=== PATIENT | female | born 1950 | race Caucasian/White ===

== ENCOUNTER → 2020-04-09 | Outpatient (CLI) | payer MEDICARE ==
[2020-04-09 16:26] VITALS: BP 143/82; PULSE 75; RESP 20; TEMP 98.7
--- NOTE | 2020-04-09 16:55 | P.GSHP ---
History of Present Illness H&P Date: 04/09/20 Chief Complaint: abnormal ultrasound right breast Breanna is a 70 year old white female seen in consultation for DR. Moncada who noted a lump in her right breast about two weeks ago. She states it has been painful. It has not changed in size. She was sent out anything in the left breast. She has no nipple discharge or skin changes. No history of any recent trauma or infection in the breast. Caffeine: 2 cups/morning Nicotine: Stopped smoking 30 years ago Theophylline: Negative Family history: none Hormonal history: Menarche: 13 G0 menopause: 50 BCP: 20 years hormones: 2 years Surgical history: cyst on ovary removed breast biopsies left breast open, 2 additional needle biopsies each breast kidney removed for donation Medical history: Negative Social history: Nicotine: Negative stopped smoking 30 years ago Alcohol: Negative Drugs: Negative - Constitutional Constitutional: Denies chills, Denies fever - EENT Eyes: denies blurred vision, denies pain Ears: bilateral: decreased hearing (bilateral hearing aids), deny: tinnitus Ears, nose, mouth and throat: Reports headache, Denies sore throat - Breasts Breasts: bilateral: as per HPI - Cardiovascular Cardiovascular: Denies chest pain, Denies shortness of breath - Respiratory Respiratory: Denies cough, Denies 7 - Gastrointestinal Gastrointestinal: Denies abdominal pain, Denies diarrhea, Denies nausea, Denies vomiting - Genitourinary (Female) Genitourinary: Denies dysuria, Denies hematuria - Menstruation Menstruation: Reports postmenopausal - Musculoskeletal Comment: arthritis/ cervical spine - Integumentary Integumentary: Denies pruritus, Denies rash - Neurological Neurological: Denies numbness, Denies weakness - Psychiatric Psychiatric: Denies anxiety, Denies depression - Endocrine Endocrine: Denies fatigue, Denies weight change - Hematologic/Lymphatic Comment: none - Allergic/Immunologic Allergic/Immunologic: Reports as per HPI Past Medical History History of Any Multi-Drug Resistant Organisms: None Reported Smoking Status: Former smoker Medications and Allergies Home Medications Medication Instructions Recorded Confirmed Type No Known Home Medications 04/09/20 04/09/20 History Allergies Allergy/AdvReac Type Severity Reaction Status Date / Time No Known Allergies Allergy Unverified 04/09/20 16:23 Surgical - Exam Vital Signs Temp Pulse Resp BP Pulse Ox 98.7 F 75 20 143/82 97 04/09/20 16:24 08/19/20 16:24 04/09/20 16:24 04/09/20 16:24 04/09/20 16:24 BMI 25.5 - General well developed, well nourished, no distress - Eyes normal ocular movement - ENT no hearing loss, no congestion - Neck no masses, trachea midline - Respiratory normal respiratory effort, clear to auscultation - Cardiovascular Rhythm: regular Heart Sounds: normal: S1, S2 - Abdomen Abdomen: soft, non tender, no guarding, no rigid, no rebound - Integumentary normal turgor - Neurologic no disoriented, no combative - Musculoskeletal normal gait, normal posture - Psychiatric oriented to time, oriented to person, oriented to place, speech is normal, memory intact breast exam: BRA: 36C inspection: ptosis grade 2 bilateral palpation: right breast: Positional exam increase fullness in the upper inner quadrant area approximately 2 cm in size, dense breast, fibrocystic changes; right nipple inversion which is chronic Right axilla: No adenopathy of concern Left breast: Multiple positional exam no dominant masses or nodules of concern Left axilla: No adenopathy of concern Results ultrasound results showing solid lesion of concern Assessment and Plan Assessment: Impression: 1. mass right breast 2. abnormal right breast ultrasound Plan: 1. Bilateral mammogram 2. Ultrasound-guided core biopsy right breast 2. Follow-up in 1 week after biopsy CC: Nella Ramirez encounter 45 minutes, > 50% of time in planning and counselling Time with Patient: Greater than 30
== END | disposition home or self-care (01) ==
LOC: WWCWWP 16:04
PROVIDERS: ATTEND Surgery
DX: Z53.9 Procedure and treatment not carried out, unspecified reason (principal)

== ENCOUNTER → 2020-04-09 | Outpatient (CLI) | payer MEDICARE ==
--- NOTE | 2020-04-10 08:02 | USB ---
Reason for exam: clinical finding. History: Patient is postmenopausal, history of other cancer, and is nulliparous. Benign right mammotome panel of the right breast, May 21, 2013. Excisional biopsy of both breasts. Took hormonal contraceptives for 10 years beginning at age 19. Took estrogen for 4 years beginning at age 50. Took progesterone for 4 years beginning at age 50. Indicated problem(s): lump or thickening and pain in the right breast. Physical Findings: Nurse Summary: Patient complains of right breast lump x 2 weeks with pain. Firm, fixed, irregular, upper inner mass, 3cm irregular, mass right breast at 1 o'clock, 2cm adjacent lump at 2 o'clock (nurse mj). US Breast RT Right complete breast ultrasound includes all four quadrants, the retroareolar region and axilla. Finding demonstrates several hypoechoic lesions measuring 0.9 x 0.9 x 0.8cm lesion at 12 o'clock, 2.0 x 2.2 x 2.1cm at 1 o'clock, 1.2 x 0.6 x 1.3cm at 1 o'clock, 0.8 x 0.6 x 0.6cm at 2 o'clock and 1.0 x 1.1 x 0.9cm at 2 o'clock. These results were verbally communicated with the patient and result sheet given to the patient on 04/09/20. ASSESSMENT: Highly suggestive of malignancy, BI-RAD 5 RECOMMENDATION: Ultrasound core biopsy of the right breast. (x 5) Bilateral mammography recommended and the patient refused at this time. Called Dr. Moncada's office with mammographic findings and has scheduled an appointment for the patient for 04/09/[address] Sow. Biopsy scheduled for 04/14/20 at 8:00. PRELIMINARY REPORT CALLED AND FAXED TO DR. SOW ON 04/10/20.
== END | disposition home or self-care (01) ==
LOC: RADUSWWP 14:42
PROVIDERS: ATTEND Internal Medicine
DX: N63.10 Unspecified lump in the right breast, unspecified quadrant (principal); N64.4 Mastodynia; R92.8 Other abnormal and inconclusive findings on diagnostic imaging of breast

== ENCOUNTER → 2020-04-14 | Day surgery (SDC) | payer MEDICARE ==
--- NOTE | 2020-04-14 07:53 | MM ---
Reason for exam: additional evaluation requested from prior study. Last mammogram was performed 4 years ago. History: Patient is postmenopausal, history of other cancer, and is nulliparous. Benign right mammotome panel of the right breast, May 21, 2013. Excisional biopsy of both breasts. Took hormonal contraceptives for 10 years beginning at age 19. Took estrogen for 4 years beginning at age 50. Took progesterone for 4 years beginning at age 50. Physical Findings: Nurse Summary: nodule in the right breast at 11 o'clock (nurse ms). MG Diagnostic Mammo w CAD CARISSA Bilateral CC and MLO view(s) were taken. Prior study comparison: April 27, 2016, bilateral MG 3d diag mammo w/cad CARISSA. January 02, 2015, bilateral MG diagnostic mammo w CAD CARISSA. The breast tissue is heterogeneously dense. This may lower the sensitivity of mammography. Partially obscured mass posterior 1 o'clock with BB. Other underlying suspicious densities upper inner quadrant right breast. No significant change on the left breast. These results were verbally communicated with the patient and result sheet given to the patient on 04/14/20. ASSESSMENT: Highly suggestive of malignancy, BI-RAD 5 RECOMMENDATION: Ultrasound core biopsy of the right breast. (multiple sites) Biopsy scheduled 04/14/20 at 8:00.
[2020-04-14 13:45] VITALS: RESP 16; TEMP 98.1
[2020-04-14 13:53] VITALS: BP 146/71; PULSE 62
--- NOTE | 2020-04-14 15:13 | USB ---
EXAMINATION TYPE: US biopsy breast VAD RT (4 sites), MG post biopsy diagnostic mammo RT wo CAD DATE OF EXAM: 04/14/2020 CLINICAL HISTORY: 70-year-old female palpable abnormality 992.8 Abnormal Mammogram. TECHNIQUE: Ultrasound guided core biopsy of the right breast. COMPARISON: 04/09/2020 FINDINGS: The procedure of ultrasound guided core biopsy was explained to the patient. Benefits, alternatives, and risks were discussed. An informed consent was then obtained. The patient was placed in supine positioning for imaging and for the procedure. The overlying skin was prepped and draped in usual sterile fashion. Lidocaine was used as anesthetic into the skin and subcutaneous tissue up to each area of concern in the right breast in turn. Lidocaine with epinephrine was utilized as an anesthetic in the subcutaneous tissues and around the axillary target lesion. SITE 1: Dominant palpable 1:00: Under ultrasound guidance, a 13-gauge vacuum- assisted mammotome Elite biopsy gun device was used to obtain 4 core samples. Following this, a Hydromark clip was left in lesion. SITE 2: Far Medial 2:00: Under ultrasound guidance, a 13-gauge vacuum-assisted mammotome Elite biopsy gun device was used to obtain 3 core samples. Following this, a coil clip was left in lesion. SITE 3: Far Lateral 12:00: Under ultrasound guidance, a 13-gauge vacuum-assisted mammotome Elite biopsy gun device was used to obtain 4 core samples. Following this, a ribbon clip was left in lesion. SITE 4: Thickened Axillary node: Under ultrasound guidance, a 13-gauge vacuum- assisted mammotome Elite biopsy gun device was used to obtain 8 core samples. Following this, a Hydromark clip was left in lesion. The patient tolerated the procedure well without any immediate complication. The patient was kept in the radiology department for short stay after the procedure and then discharged home in stable condition. Postbiopsy mammogram shows clips in place. The 2 farthest clips measure up to 6 cm away. IMPRESSION: Successful, uncomplicated ultrasound guided core biopsy of suspected multifocal upper inner quadrant right breast cancer. The dominant palpable 1:00 lesion as well as the far lateral 12:00 lesion and far medial 2 o'clock lesions were sampled. The 2 farthest clips measure up to 6 cm away. The thickened but nonenlarged axillary lymph node (site 4) was also sampled. Full pathology results to follow. Pathology Results: Malignant A. RIGHT BREAST LESION AT 1:00 POSITION, NEEDLE CORE BIOPSY: Adenocarcinoma, David grade 3. The fragments of tumor aggregate to a length of 9 mm or about 50% of biopsy volume not including blood clot. See Surgical Pathology Cancer Case Summary. B. RIGHT BREAST LESION AT 2:00 POSITION, BIOPSIES: David grade 3 infiltrating ductal adenocarcinoma. The aggregate linear dimension of the tumor fragments is about 1.5 cm (about 50% tissue involvement). C. RIGHT BREAST LESION AT 12:00 POSITION, NEEDLE CORE BIOPSY: David grade 3 infiltrating ductal adenocarcinoma measuring in aggregate about 3 cm in linear dimension (about 70% tissue involvement). Focal lymph vascular space permeation is identified. D. RIGHT AXILLARY: High grade ductal carcinoma involving fibroadipose tissue with scant amounts of lymphoid tissue suggestive of residual lymph node Recommendation Surgical consult of the right breast. Multifocal upper inner quadrant right breast involvement along with a positive lymph node. MTDD
== END ==
LOC: RADUSWWP 07:09
PROVIDERS: ATTEND Surgery
DX: C50.911 Malignant neoplasm of unspecified site of right female breast (principal); C50.611 Malignant neoplasm of axillary tail of right female breast; Z17.0 Estrogen receptor positive status [ER+]
CPT/HCPCS: 19083; 19084; 88305; 88342; 88341; 77066; A4648; J2001; 77065

== ENCOUNTER → 2020-04-14 | Outpatient (CLI) | payer MEDICARE ==
[2020-04-14 07:56] VITALS: BP 142/80; PULSE 61; RESP 16; TEMP 98.2
== END | disposition home or self-care (01) ==
LOC: RADMAMWWP 07:08
PROVIDERS: ATTEND Surgery
DX: N63.0 Unspecified lump in unspecified breast (principal); Z53.9 Procedure and treatment not carried out, unspecified reason

== ENCOUNTER → 2020-04-25 | Outpatient (CLI) | payer MEDICARE ==
[2020-04-25 11:53] VITALS: BP 155/85; PULSE 66; RESP 18; TEMP 99
--- NOTE | 2020-04-25 13:03 | P.PN ---
Subjective Progress Note Date: 04/25/20 Principal diagnosis: right breast cancer [id number] Stage IIIA Breanna is a 70-year-old white female status post ultrasound-guided core biopsy of 3 areas in the right breast as well as the axilla. All were consistent with infiltrating ductal carcinoma. The 3 areas in the breast appeared to be 3 separate areas. Additionally on ultrasound there was question whether there may be other areas which were not biopsied. We will review the radiographs with Dr. Kemp from radiology there was concern that the breasts were very dense and that she would benefit from an MRI of both breasts. The results of the pathology are discussed with the patient and her as well as the need for additional imaging. I've also discussed with them that the lesions are healed positive MS HER-2 negative grade 3. She tolerated the biopsies well. She does have some ecchymosis at the biopsy sites. Physical exam: Lungs: Clear Heart: Regular rate and rhythm Biopsy sites positive ecchymosis in the breast no evidence of hematoma Healed well at the axilla Impression: 1. Multifocal invasive ductal carcinoma right breast 2. Further imaging of both breast left breast ultrasound and bilateral breast MRI 3. Appointment with medical oncology The patient and her are going to [place] for 6 months. They're leaving within the next several weeks. She only has an appointment with the breast oncologist Dr. Lisa Hein. The information to her. Objective - Vital Signs Vital signs: Vital Signs Temp 99.0 F 04/25/20 11:50 Pulse 66 04/25/20 11:50 Resp 18 04/25/20 11:50 BP 155/85 04/25/20 11:50 Pulse Ox 97 04/25/20 11:50 Intake & Output 04/24/20 04/25/20 04/25/20 18:59 06:59 18:59 Weight 63.503 kg - Constitutional General appearance: Present: average body habitus - EENT Eyes: Present: EOMI ENT: Present: hearing grossly normal - Respiratory Respiratory: bilateral: CTA - Cardiovascular Rhythm: regular Heart sounds: normal: S1, S2 - Integumentary Integumentary Comment(s): Mild ecchymosis of biopsy sites evidence of hematoma or infection - Musculoskeletal Musculoskeletal: Present: gait normal - Psychiatric Psychiatric: Present: A&O x's 3, appropriate affect, intact judgment & insight Assessment and Plan Assessment: Impression/Plan 1. Multifocal invasive ductal carcinoma right breast; Stage IIIA 2. Further imaging of both breast left breast ultrasound and bilateral breast MRI 3. Appointment with medical oncology The patient and her are going to [place] for 6 months. They're leaving within the next several weeks. She only has an appointment with the breast oncologist Dr. Lisa Hein. The information to her. Encounter 40 minutes > 50% of time in planning and counselling
== END | disposition home or self-care (01) ==
LOC: WWCWWP 11:12
PROVIDERS: ATTEND Surgery
DX: Z53.9 Procedure and treatment not carried out, unspecified reason (principal)

== ENCOUNTER → 2021-01-23 | Outpatient (CLI) | payer MEDICARE ==
[2021-01-23 13:16] VITALS: BP 144/92; PULSE 76; RESP 16; TEMP 98.2
--- NOTE | 2021-01-23 14:00 | P.PN ---
Subjective Progress Note Date: 01/23/21 Principal diagnosis: right breast stage Breanna is a 70 year old white female seen in consultation for DR. Moncada who noted a lump in her right breast about two weeks ago. She states it has been painful. It has not changed in size. She was sent out anything in the left ar ast. She has no nipple discharge or skin changes. No history of any recent trauma or infection in the breast. She subsequently had core biopsy of 3 areas of the right breast 1:00 2:00 and 12:00 as well as the axillary nodes which revealed cancer at each site. This was done on . She subsequently went to [place] where she received treatment. The treatment consisted of 5 months of neoadjuvant chemotherapy (Adriamycin, Cytoxan, Taxol) October 27, 2020 Breast mastectomy with axillary lymph node dissection Subpectoral implant placed Radiation therapy which she finished last Tuesday Pathology as per one of the doctors reports reveals: Right breast: Residual infiltrating ductal carcinoma 1.4 cm grade 2 margins negative Lymph node right axilla sentinel node #1 clipped metastatic adenocarcinoma with extracapsular extension Lymph node right axilla sentinel node #2 metastatic adenocarcinoma with extracapsular extension Lymph node right axilla excision sinus histiocytosis no metastatic tumor seen in for additional nodes skin of right breast excision no significant pathologic changes no evidence of cancer MRI of the breast no evidence of the left breast represent malignancy right breast mass like enhancement consistent with known malignancies Chest x-ray from no acute abnormality application following placement of left subclavian Port-A-Cath CT abdomen and pelvis date as well as CT of the thorax impression Hyperdense sclerotic focus within the issue him on the left has appears most compatible with a bone island give a history of breast cancer sclerotic metastases could not be fully excluded and correlation with bone scan recommended In the CT of the thorax there were noted to be lesions in the right breast no evidence of pulmonary metastatic disease or bony metastases some mildly prominent lymph nodes in the right axilla 05/21/2020 bone scan performed no suspicious uptake and the exam no convincing evidence of uptake at the issue him on the left She was instructed to start Letrazole the first of the week. She was also told she would need a bone density evaluation. Caffeine: 2 cups/morning Nicotine: Stopped smoking 30 years ago Theophylline: Negative Family history: none Hormonal history: Menarche: 13 G0 menopause: 50 BCP: 20 years hormones: 2 years Surgical history: cyst on ovary removed breast biopsies left breast open, 2 additional needle biopsies each breast kidney removed for donation Medical history: Negative Social history: Nicotine: Negative stopped smoking 30 years ago Alcohol: Negative Drugs: Negative - Constitutional Constitutional: Denies chills, Denies fever - EENT Eyes: denies blurred vision, denies pain Ears: bilateral: decreased hearing (bilateral hearing aids), deny: tinnitus Ears, nose, mouth and throat: Reports headache, Denies sore throat - Breasts Breasts: bilateral: as per HPI - Cardiovascular Cardiovascular: Denies chest pain, Denies shortness of breath - Respiratory Respiratory: Denies cough - Gastrointestinal Gastrointestinal: Denies abdominal pain, Denies diarrhea, Denies nausea, Denies vomiting - Genitourinary (Female) Genitourinary: Denies dysuria, Denies hematuria - Menstruation Menstruation: Reports postmenopausal - Musculoskeletal Comment: arthritis/ cervical spine - Integumentary Integumentary: Denies pruritus, Denies rash - Neurological Neurological: Denies numbness, Denies weakness - Psychiatric Psychiatric: Denies anxiety, Denies depression - Endocrine Endocrine: Denies fatigue, Denies weight change - Hematologic/Lymphatic Comment: none - Allergic/Immunologic Allergic/Immunologic: Reports as per HPI Objective - Vital Signs Vital signs: Vital Signs Temp 98.2 F 01/23/21 13:06 Pulse 76 01/23/21 13:06 Resp 16 01/23/21 13:06 BP 144/92 01/23/21 13:06 Pulse Ox 98 01/23/21 13:06 Intake & Output 01/22/21 01/23/21 01/23/21 18:59 06:59 18:59 Weight 62.596 kg - Constitutional General appearance: Present: average body habitus - EENT Eyes: Present: EOMI ENT: Present: hearing grossly normal - Neck Neck: Present: normal ROM - Respiratory Respiratory: bilateral: CTA - Cardiovascular Rhythm: regular Heart sounds: normal: S1, S2 - Integumentary Integumentary Comment(s): Marked erythema right chest wall - Musculoskeletal Musculoskeletal: Present: gait normal - Psychiatric Psychiatric: Present: A&O x's 3, appropriate affect, intact judgment & insight - Additional findings Additional findings: Breast examination: BRA: 36C inspection: Marked erythema right chest wall related to recent radiation therapy, left breast well-healed scars from prior breast left Palpation: Right breast: Radiation and surgical changes no discrete no masses noted Right axilla: No adenopathy of concern Left breast: Postop changes no dominant masses or nodules of concern, fibrocystic changes Left axilla: No adenopathy of concern Assessment and Plan Assessment: Impression: 1. stage IIA [id number]- at the time of surgery invasive ductal carcinoma of the right breast 2. Patient is completed neoadjuvant chemotherapy, she has completed radiation therapy, and surgical resection. 3. Patient is to start on letrazole in the near future Plan: 1. Patient establishing follow-up related to her recent right breast cancer at this time she has no evidence of any disease 2. Recommend appointment with medical oncology regarding hormonal therapy 3. Follow-up here in 4 months 4. bone density needs to be done and then follow with medical oncology CC: Dr. Mtz
== END ==
LOC: WWCWWP 12:45
PROVIDERS: ATTEND Surgery
DX: C50.911 Malignant neoplasm of unspecified site of right female breast (principal); Z87.891 Personal history of nicotine dependence

== ENCOUNTER → 2021-02-06 | Outpatient (CLI) | payer MEDICARE ==
--- NOTE | 2021-02-09 07:48 | BD ---
EXAMINATION TYPE: Axial Bone Density DATE OF EXAM: 02/06/2021 COMPARISON: 05.11.2013 CLINICAL HISTORY: 70 YR OLD FEMALE.....ICD-10 CODE: Z78.0 POST MENOPAUSAL Height: 62.5 Weight: 135 FRAX RISK QUESTIONS: NOTHING TO NOTE HERE RISK FACTORS HISTORY OF: Postmenopausal woman: YES, AT AGE 49 YRS Take estrogen and/or progesterone medications: YES, IN THE PAST < 1 YR Hyperparathyroidism: NO Adrenal Insufficiency: NO MEDICATIONS: Prednisone or other steroids: YES, DURING CHEMO Additional Medications: HX OF RADIATION AND CHEMO, FOR BREAST CANCER, VIT D AND CALCIUM Additional History: HX OF RT BREAST CANCER, EXAM MEASUREMENTS: Bone mineral densitometry was performed using the [employer] System. Bone mineral density as measured about the Lumbar spine is: ----- L1-L4(G/cm2): 1.228 T Score Values are as follows: ----- L1: -0.5 ----- L2: -1.2 ----- L3: 0.5 ----- L4: 1.7 ----- L1-L4: 0.4 Bone mineral density has: Decreased -3.0% since study of: 05.11.2013 Bone mineral density about the R hip (g/cm2): 0.893 Bone mineral density about the L hip (g/cm2): 0.844 T Score values are as follows: -----R Neck: -1.4 -----L Neck: -1.6 -----R Total: -0.9 -----L Total: -1.3 Bone mineral density has: Decreased -5.3% since study of: 05.11.2013 FRAX%s: THERE IS A 10.7% CHANCE FOR A MAJOR OSTEOPOROTIC FX AND A 1.9% FOR HIP......PROBABILITY F OR FX IN 10 YRS TIME IMPRESSION: Osteopenia NOTE: T-SCORE=SD OF THE YOUNG ADULT MEAN.
== END ==
LOC: RADBDWWP 13:06
PROVIDERS: ATTEND Surgery
DX: Z78.0 Asymptomatic menopausal state (principal)
CPT/HCPCS: 77080

== ENCOUNTER → 2021-05-22 | Outpatient (CLI) | payer MEDICARE ==
[2021-05-22 11:46] VITALS: BP 117/71; PULSE 81; RESP 12; TEMP 98.6
--- NOTE | 2021-05-22 12:01 | P.PN ---
Subjective Progress Note Date: 05/22/21 Principal diagnosis: stage IIA right breast invasive ductal cancer; [id number]- Breanna is a 70 year old white female seen in consultation for DR. Moncada who noted a lump in her right breast about two weeks prior to being seen. She states it had been painful. It had not changed in size. She did not note anything in the left breast. She had no nipple discharge or skin changes. No history of any recent trauma or infection in the breast. She subsequently had core biopsy of 3 areas of the right breast 1:00 2:00 and 12:00 as well as the axillary nodes which revealed cancer at each site. This was done on . She subsequently went to [place] where she received treatment. The treatment consisted of 5 months of neoadjuvant chemotherapy (Adriamycin, Cytoxan, Taxol) October 27, 2020 Breast mastectomy with axillary lymph node dissection Subpectoral implant placed Radiation therapy which she finished last Tuesday Pathology as per one of the doctors reports reveals: Right breast: Residual infiltrating ductal carcinoma 1.4 cm grade 2 margins negative Lymph node right axilla sentinel node #1 clipped metastatic adenocarcinoma with extracapsular extension Lymph node right axilla sentinel node #2 metastatic adenocarcinoma with extracapsular extension Lymph node right axilla excision sinus histiocytosis no metastatic tumor seen in for additional nodes skin of right breast excision no significant pathologic changes no evidence of cancer MRI of the breast no evidence of the left breast represent malignancy right breast mass like enhancement consistent with known malignancies Chest x-ray from no acute abnormality application following placement of left subclavian Port-A-Cath CT abdomen and pelvis date as well as CT of the thorax impression Hyperdense sclerotic focus within the ishum on the left has appears most compatible with a bone island give a history of breast cancer sclerotic metastases could not be fully excluded and correlation with bone scan recommended In the CT of the thorax there were noted to be lesions in the right breast no evidence of pulmonary metastatic disease or bony metastases some mildly prominent lymph nodes in the right axilla 05/21/2020 bone scan performed no suspicious uptake and the exam no convincing evidence of uptake at the issue him on the left She was instructed to start Letrazole the first of the week. She was also told she would need a bone density evaluation. 10-1-[address] Blair from [id number] reviewed. All her treatment was in [place]. She has taken letrazole and Dr. Blair is following her for that. She states she is having some pain in her ankles and knees related to this. She states that her right chest wall was painful and feels like a bowling ball. She does not complain of any new lumps masses or nodules however on the chest wall. She does not complain of any lumps masses or nodules in the left breast and is due for a left breast mammogram. She also underwent a left breast symmetry procedure following the right breast nipple sparing mastectomy. Caffeine: 2 cups/morning Nicotine: Stopped smoking 30 years ago Theophylline: Negative Family history: patient: right breast cancer Hormonal history: Menarche: 13 G0 menopause: 50 BCP: 20 years hormones: 2 years Surgical history: cyst on ovary removed breast biopsies left breast open, 2 additional needle biopsies each breast kidney removed for donation right breast mastectomy and reconstruction, right axillary node 6 nodes removed Medical history: Negative Social history: Nicotine: Negative stopped smoking 30 years ago Alcohol: Negative Drugs: Negative - Constitutional Constitutional: Denies chills, Denies fever - EENT Eyes: denies blurred vision, denies pain Ears: bilateral: decreased hearing (bilateral hearing aids), deny: tinnitus Ears, nose, mouth and throat: Reports headache, Denies sore throat - Breasts Breasts: bilateral: as per HPI - Cardiovascular Cardiovascular: Denies chest pain, Denies shortness of breath - Respiratory Respiratory: Denies cough - Gastrointestinal Gastrointestinal: Denies abdominal pain, Denies diarrhea, Denies nausea, Denies vomiting - Genitourinary (Female) Genitourinary: Denies dysuria, Denies hematuria - Menstruation Menstruation: Reports postmenopausal - Musculoskeletal Comment: arthritis/ cervical spine - Integumentary Integumentary: Denies pruritus, Denies rash - Neurological Neurological: Denies numbness, Denies weakness - Psychiatric Psychiatric: Denies anxiety, Denies depression - Endocrine Endocrine: Denies fatigue, Denies weight change - Hematologic/Lymphatic Comment: none - Allergic/Immunologic Allergic/Immunologic: Reports as per HPI Objective - Exam BMI 24 - Constitutional General appearance: Present: cooperative - EENT Eyes: Present: EOMI ENT: Present: hearing grossly normal - Neck Neck: Present: normal ROM - Respiratory Respiratory: bilateral: CTA - Cardiovascular Rhythm: regular Heart sounds: normal: S1, S2 - Gastrointestinal General gastrointestinal: Present: soft - Integumentary Integumentary: Present: normal turgor - Musculoskeletal Musculoskeletal: Present: gait normal - Psychiatric Psychiatric: Present: A&O x's 3, appropriate affect, intact judgment & insight - Additional findings Additional findings: Breast Exam: BRA: 34C inspection: Bilateral well-healed scars from prior surgery, grade 2 ptosis bilateral, contraction and mild erythema right breast believed related to radiation Palpation: Right breast: Postop and radiation changes, firmness of the area of the reconstruction but no evidence of recurrent cancer Right axilla: No adenopathy of concern Left breast: Well-healed scars from prior surgery no dominant masses or nodules of concern Left axilla: No adenopathy of concern Assessment and Plan Assessment: Impression: 1. stage IIA right breast invasive ductal carcinoma, treated with a right nipple sparing mastectomy and reconstruction, axillary node removal, radiation, chemotherapy, and left resolved. The patient at this time has no evidence of recurrent cancer however she is complaining of discomfort in the right chest wall as well as heaviness of the implant. Additionally she has joint pain related to the left resolved. She has no complaints related to the left breast. 2. Patient's last left breast mammogram was approximately a year ago. Plan: 1. Left breast mammogram 2. Follow-up after left breast mammogram 3. Patient would like to consider removal of the implant on the right chest wall and will discuss possible reconstruction options with her plastic surgeon 4. follow up with Dr. Blair regarding letrazole 5. follow up in 4 months in [place] CC: Dr. Mtz
== END | disposition home or self-care (01) ==
LOC: WWCWWP 11:32
PROVIDERS: ATTEND Surgery
DX: Z53.9 Procedure and treatment not carried out, unspecified reason (principal)

== ENCOUNTER → 2021-05-25 | Outpatient (CLI) | payer MEDICARE ==
--- NOTE | 2021-05-25 13:50 | MM ---
Reason for exam: screening (asymptomatic). Last mammogram was performed 1 year and 1 month ago. History: Patient is postmenopausal, has history of breast cancer at age 70, history of other cancer, and is nulliparous. Breast lift of the left breast, October 2020. Malignant US biopsy breast VAD RT of the right breast, April 14, 2020. Malignant US biopsy breast add'l VAD RT of the right breast, April 14, 2020. Malignant US biopsy breast add'l VAD RT of the right breast, April 14, 2020. Malignant US biopsy breast add'l VAD RT of the right breast, April 14, 2020. Benign right mammotome panel of the right breast, May 21, 2013. Excisional biopsy of both breasts. Took hormonal contraceptives for 10 years beginning at age 19. Took estrogen for 4 years beginning at age 50. Took progesterone for 4 years beginning at age 50. Physical Findings: A clinical breast exam by your physician is recommended on an annual basis and results should be correlated with mammographic findings. MG 3D Scr Angelo Unilateral W/Cad CC and MLO view(s) were taken of the left breast. Prior study comparison: April 14, 2020, right breast MG diagnostic mammo RT wo CAD. April 14, 2020, bilateral MG diagnostic mammo w CAD CARISSA. The breast tissue is extremely dense which could obscure a lesion on mammography. There is no discrete abnormality. Suboptimal CC view posterior tissue. Due to patient difficulty. ASSESSMENT: Negative, BI-RAD 1 RECOMMENDATION: Follow-up diagnostic mammogram of the left breast in 1 year.
== END | disposition home or self-care (01) ==
LOC: RADMAMWWP 07:43
PROVIDERS: ATTEND Surgery
DX: Z12.31 Encounter for screening mammogram for malignant neoplasm of breast (principal)
CPT/HCPCS: 77067

== ENCOUNTER → 2022-05-26 | Outpatient (CLI) | payer MEDICARE ==
--- NOTE | 2022-05-26 14:46 | MM ---
Reason for Exam: Hx of breast cancer, mastectomy. Last mammogram was performed 2 year(s) and 2 month(s) ago. Patient History: Menarche at age 13. Patient has no children. Postmenopausal. Other cancer. Breast cancer, age 70. Estrogen for 4 years from age 50 until age 54. Progesterone for 4 years from age 50 until age 54. Hormonal Contraceptives for 10 years from age 19 until age 29. Bilateral Excisional Biopsy. 04/14/2020, Malignant Core Biopsy on the right side. 04/14/2020, Malignant Core Biopsy on the right side. 04/14/2020, Malignant Core Biopsy on the right side. 04/14/2020, Malignant Core Biopsy on the right side. 05/21/2013, Benign Core Biopsy on the right side. Prior Study Comparison: 04/14/2020 Bilateral Diagnostic Mammogram, [facility]. 04/14/2020 Right Diagnostic Mammogram, [facility]. 05/25/2021 Bilateral Screening Mammogram, [facility]. Tissue Density: Left: The breast tissue is heterogeneously dense. This may lower the sensitivity of mammography. Findings: Analyzed By CAD. No suspicious masses, calcifications or distortions. Overall Assessment: Benign, BI-RAD 2 Management: Screening Mammogram of the left breast in 1 year. A clinical breast exam by your physician is recommended on an annual basis and results should be correlated with mammographic findings. This exam should not preclude additional follow-up of suspicious palpable abnormalities. Results were given to the patient verbally at the time of exam. Electronically signed and approved by: Linden Davis DO
== END | disposition home or self-care (01) ==
LOC: RADMAMWWP 14:12
PROVIDERS: ATTEND Internal Medicine Hematology & Oncology
DX: Z08 Encounter for follow-up examination after completed treatment for malignant neoplasm (principal); Z85.3 Personal history of malignant neoplasm of breast
CPT/HCPCS: 77065; G0279; 77061

== ENCOUNTER → 2023-02-09 | Outpatient (CLI) | payer MEDICARE ==
--- NOTE | 2023-02-10 19:58 | BD ---
EXAMINATION TYPE: Axial Bone Density DATE OF EXAM: 02/09/2023 CLINICAL HISTORY: 72 years old Female. ICD-10 CODE: M85.80 OTH DISRD OF BONE DENSITY AND STRUCTURE, UN Height: 62.5 Weight: 140 FRAX RISK QUESTIONS: Family History (Parent hip fracture): no History of Fracture in Adulthood: no Secondary Osteoporosis: no 3. Menopause before 45: 50 RISK FACTORS HISTORY OF: Family History of Osteoporosis: no Active: yes Diet low in dairy products/other sources of calcium: no Postmenopausal woman: yes Lost more than 2 inches in height since high school: no Frequent falls: no Poor Health: no MEDICATIONS: Additional Medications: yes HBP meds, cholesterol meds, tamoxifen Additional History: yes breast cancer with radiation and chemo EXAM MEASUREMENTS: Bone mineral densitometry was performed using the Freebeep[employer] System. Bone mineral density as measured about the Lumbar spine is: ----- L1-L4(G/cm2): 1.219 T Score Values are as follows: ----- L1: 0.3 ----- L2: 0.4 ----- L3: 0.2 ----- L4: 0.3 ----- L1-L4: 0.3 Z Score Values are as follows: ----- L1: 2.0 ----- L2: 2.2 ----- L3: 2.0 ----- L4: 2.1 ----- L1-L4: 2.1 Bone mineral density has: Decreased -0.7% since study of: 02/06/2021 Bone mineral density about the R hip (g/cm2): 0.883 Bone mineral density about the L hip (g/cm2): 0.861 T Score values are as follows: -----R Neck: -1.6 -----L Neck: -1.8 -----R Total: -1.0 -----L Total: -1.2 Z Score values are as follows: -----R Neck: 0.3 -----L Neck: 0.1 -----R Total: 0.7 -----L Total: 0.5 Bone mineral density has: Increased 0.5% since study of: 02/06/2021 FRAX%s: The graph provided illustrates a 12.1% chance for a major osteoporotic fx and a 2.6% chance f or the hips probability for fx in 10 years time. IMPRESSION: Osteopenia (T Score between -2.5 and -1). There is slightly increased risk of fracture and the patient may be considered for treatment. Re-Screen 2-5 years. NOTE: T-SCORE=SD OF THE YOUNG ADULT MEAN.
== END | disposition home or self-care (01) ==
LOC: RADBDWWP 14:51
PROVIDERS: ATTEND Internal Medicine
DX: M85.89 Other specified disorders of bone density and structure, multiple sites (principal)
CPT/HCPCS: 77080

== ENCOUNTER → 2024-01-04 | Outpatient (CLI) | payer MEDICARE ==
--- NOTE | 2024-01-05 18:35 | MM ---
Reason for Exam: Screening (asymptomatic). Last mammogram was performed 1 year(s) and 7 month(s) ago. Patient History: Menarche at age 13. Patient has no children. Postmenopausal. Breast cancer, right, age 70. Previous chest radiation therapy at age 69. Previous chemotherapy at age 69. Estrogen for 4 months starting at age 50. Progesterone for 4 months starting at age 50. Hormonal Contraceptives for 10 years from age 19 until age 29. 11/2020, Mastectomy on the Right side. Bilateral Excisional Biopsy. 04/14/2020, Malignant Core Biopsy on the right side. 04/14/2020, Malignant Core Biopsy on the right side. 04/14/2020, Malignant Core Biopsy on the right side. 04/14/2020, Malignant Core Biopsy on the right side. 05/21/2013, Benign Core Biopsy on the right side. Prior Study Comparison: 04/14/2020 Right Diagnostic Mammogram, [facility]. 05/25/2021 Bilateral Screening Mammogram, [facility]. 05/26/2022 Left MG 3D diag mammo w/cad LT, [facility]. Tissue Density: Left: The breasts are heterogeneously dense, which may obscure small masses. Findings: No significant change from prior exams. Overall Assessment: Benign, BI-RAD 2 Management: Screening Mammogram of the left breast in 1 year. Given the patient's breast density, consideration can be given to supplementary screening with breast ultrasound.. Results were given to the patient verbally at the time of exam. Patient should continue monthly self-breast exams. A clinical breast exam by your physician is recommended on an annual basis. This exam should not preclude additional follow-up of suspicious palpable abnormalities. Electronically signed and approved by: Subhash Kemp M.D. Radiologist
== END | disposition home or self-care (01) ==
LOC: RADMAMWWP 15:20
PROVIDERS: ATTEND Internal Medicine
DX: Z12.31 Encounter for screening mammogram for malignant neoplasm of breast (principal); Z78.0 Asymptomatic menopausal state
CPT/HCPCS: 77067

== ENCOUNTER → 2024-01-24 | Outpatient (CLI) | payer MEDICARE ==
--- NOTE | 2024-01-24 10:17 | XR ---
EXAMINATION TYPE: XR lumbar spine 3V DATE OF EXAM: 01/24/2024 Comparison: None Clinical History: 73-year-old female Z71.3 DIETARY COUNSELING AND SURVEILLANCE Findings: Leftward truncal shift may be positional. 5 lumbar type vertebral bodies. Advanced hypertrophic facet arthropathy throughout especially mid to lower lumbar spine. Mild multilevel degenerative disc disea se, more moderate at L5-S1 with a vacuum phenomenon and endplate sclerosis. Vertebral body heights ar e preserved and alignment is maintained. Impression: 1. Hypertrophic facet arthropathy especially mid to lower lumbar spine. Mild multilevel degenerative disc disease, more moderate at L5-S1. 2. No vertebral compression collapse or malalignment.
== END | disposition home or self-care (01) ==
LOC: LABWHC1 09:12
PROVIDERS: ATTEND Internal Medicine Hematology & Oncology
DX: C50.211 Malignant neoplasm of upper-inner quadrant of right female breast (principal); M51.37 Other intervertebral disc degeneration, lumbosacral region; G47.00 Insomnia, unspecified; M12.9 Arthropathy, unspecified; M47.816 Spondylosis without myelopathy or radiculopathy, lumbar region; Z71.3 Dietary counseling and surveillance
CPT/HCPCS: 72100

== ENCOUNTER → 2025-01-29 | Outpatient (CLI) | payer MEDICARE ==
--- NOTE | 2025-01-29 08:09 | MR ---
INDICATION: Patient age:Female; 74 years old; Reason for study: M54.50 LOW BACK PAIN; PHH. COMPARISONS: Lumbar spine radiograph 01/24/2024. TECHNIQUE: Multi planar, multi sequence imaging was performed utilizing: T1-weighted, T2-weighted, a nd turbo inversion recovery imaging of the lumbar spine. The patient was not given contrast. FINDINGS: The lumbar vertebral bodies do have preserved heights. Mild levocurvature of the lumbar sp ine. No spondylolisthesis. Multilevel anterior osteophytosis. Multilevel disc desiccation is present. Disc height loss at L4-L5 and L5-S1. Type II Modic changes involving the endplate surrounding the L5 -S1 disc. Type I Modic changes involving the endplates around the T11-T12 disc anteriorly. The conus medullaris and the distal spinal cord do appear unremarkable with regards to their signal intensity a nd morphology. T12-L1: Tiny right paracentral disc protrusion. No central canal stenosis. No neural foraminal stenos is. L1-L2: Tiny right paracentral disc protrusion. No central canal stenosis. No neural foraminal stenos is. L2-L3: No disc herniation. No central canal or neural foraminal stenosis. L3-L4: Minimal broad-based disc bulge. No disc herniation or central canal stenosis. Bilateral facet arthropathy. Minimal bilateral neural foraminal narrowing. L4-L5: Minimal broad-based disc bulge. No central canal stenosis. No disc herniation. Bilateral facet arthropathy. Mild left neural foraminal stenosis. The right neural foramen is patent. L5-S1: Minimal broad-based disc bulge. No central canal stenosis. No disc herniation. Bilateral face t arthropathy. Mild bilateral neural foraminal stenosis. Other significant findings: Right kidney is absent. IMPRESSION: Mild multilevel disc degeneration with associated osteoarthritic changes as described above. No signi ficant spinal canal stenosis. [facility], , 01/29/2025 8:07 AM
== END | disposition home or self-care (01) ==
LOC: RADMRIMAIN 05:57
PROVIDERS: ATTEND Internal Medicine
DX: M51.360 Other intervertebral disc degeneration, lumbar region with discogenic back pain only (principal); M47.816 Spondylosis without myelopathy or radiculopathy, lumbar region; M99.73 Connective tissue and disc stenosis of intervertebral foramina of lumbar region
CPT/HCPCS: 72148

== ENCOUNTER → 2025-03-04 | Outpatient (CLI) | payer MEDICARE ==
[2025-03-04 08:22] VITALS: BP 135/81; PULSE 70; RESP 16
--- NOTE | 2025-03-06 07:57 | P.PAINPG ---
PQRS Measure Charge Sheet Comment: HISTORY OF PRESENT ILLNESS: A 75 yr old female as a referral from Dr Mtz presents today w severe and chronic LBP > 1 yr secondary to radiculopathy, spondylosis and facet arthropathy without myelopathy for evaluation. Pt states pain level is provoked at 7 /10 in intensity, constant, localized in the lumbar spine, predominantly axial, stabbing in character w occasional shooting pain towards the hips. Pain is provoked by laying supine. Pain is alleviated by physician guided home stretches daily since 2020, heat, manual massage, repositioning and rest . Oswestry axial pain score at 29. PMH: OA, HTN, Hyperlipidemia, Vitamin D Deficiency, OP, R Breast CA (2020) PSH: BL Cataract Excisions, R Breast Masectomy w Reconstruction, Nephrectomy SH: Former tobacco user, Occ ETOH use, No illicit drug use FH: Non contributory All: See list Medications include Tyl REVIEW OF ORGAN SYSTEMS: CONSTITUTIONAL: No fevers or chills. No recent weight loss. NEUROLOGICAL: + numbness and tingling along the distal extremities. No seizure disorders or headaches. MUSCULOSKELETAL: + pain PSYCHIATRIC: Denies current depression or suicidal thoughts. Physical Examinations : Constitutional : Cooperative , not in acute distress . Neurologic : Cranial nerve II to XII intact. No focal neurological deficits. Psychiatric : alert & oriented x 3. Matching mood & appropriate affect. Judgment & insight intact. Musculoskeletal : Cervical Spine Motor strength in the deltoid and biceps: Normal right side. Normal Left side Motor strength biceps and the wrist extensors: Normal right side . Normal left side Motor strength in the triceps muscle: Normal right side. Normal left side Deep tendon reflexes: Normal at the biceps. Normal at Brachioradialis. Normal at triceps Vertebral body tenderness to deep palpation over Cervical facet loading test: positive bilaterally Spurling test: positive bilaterally Neck distraction test: positive bilaterally Verona sign: positive bilaterally Lumbar spine Motor strength lower extremities ,thigh and legs 5/5 Right side , 5/5 Left side Deep tendon reflexes : Normal Knee Jerk. Normal Ankle Jerk Vertebral body tenderness over Ivan Test positive Lumbar facet Loading Test: positive Right / positive Left Range of motion of the lumbar spine Flexion 30 degrees, extension 10 degrees Straight Leg Raise test: Left/ Right positive at degrees Merle test: positive right / positive left. Severe tenderness over the Sacroiliac joint on the Right / Left sides Gaenslen test: positive bilaterally Seated flexion test: positive bilaterally. Sacral spine : Severe tenderness over the Sacroiliac joint: right side / left side Range of motion: Flexion of the lumbar spine <60 degrees Range of motion: Extension of the lumbar spine <20 degrees Gaenslen's Test positive BL Merle test: positive right side / left side Thigh Thrust Test BL positive Sacral Thrust Test Imaging: MRI non contrast lumbar spine from 01/29/25 reviewed Assessment/ Plan : L3-S1 broad based disc bulges, BL Sacroiliitis Recommendation of BL SI #1. Risks, benefits of procedure discussed and patient verbalized understanding. All questions answered. I have spent greater than 30 minutes on patient care today. Dr Kasper was available by phone for the evaluation of this patient. The time was used to review the medical records including relevant urine studies and Prescription history (MAPs), review of the available imaging, evaluation and examination of the patient, coordination of care with the medical staff and if applicable referring physicians, as well as creation of the medical record Home Medications: Ambulatory Orders Biotin 10,000 mcg PO HS 01/23/21 Ascorbic Acid/Collagen Hydr [Collagen Plus Vit C Capsule] 1 each PO DAILY 03/04/25 Atorvastatin [Lipitor] 40 mg PO DAILY 03/04/25 Cholecalciferol (Vitamin D3) [Vitamin D3 (125 MCG = 5,000 IU)] 125 mcg PO DAILY 03/04/25 Docusate [Colace] 100 mg PO DAILY 03/04/25 Losartan [Cozaar] 25 mg PO DAILY 03/04/25 Raloxifene [Evista] 60 mg PO DAILY 03/04/25 amLODIPine [Norvasc] 5 mg PO BID 03/04/25 Controlled Substance Measures - Controlled Substance Measures Is patient prescribed a controlled substance at discharge?: No
== END ==
LOC: PNWHC3 07:38
PROVIDERS: ATTEND Specialist
DX: M46.1 Sacroiliitis, not elsewhere classified (principal); M51.87 Other intervertebral disc disorders, lumbosacral region
CPT/HCPCS: 99211

== ENCOUNTER → 2025-03-07 | Outpatient (CLI) | payer MEDICARE ==
--- NOTE | 2025-03-08 08:48 | BD ---
EXAMINATION TYPE: Axial Bone Density DATE OF EXAM: 03/07/2025 CLINICAL HISTORY: 75 years old Female. ICD-10 CODE: M81.0 OSTEOPENIA , Additional History: Height: 63" Weight: 147lbs FRAX RISK QUESTIONS: Alcohol (3 or more units per day): No Family History (Parent hip fracture): No Glucocorticoids (More than 3mos): No (Ex: prednisone, prednisolone, methylprednisolone, dexamethasone, and hydrocortisone). History of Fracture in Adulthood: No Secondary Osteoporosis: 1. Type 1 Diabetes: No 2. Hyperthyroidism: No 3. Menopause before 45: No 4. Malnutrition: No 5. Chronic liver disease: No Rheumatoid Arthritis: No Current Tobacco Use: No RISK FACTORS HISTORY OF: Hip Fracture (Right/Left): No Spine Fracture: No History of Wrist Fracture: No Surgery to Spine/Hip(right/left)/Wrist (right/left): No MEDICATIONS: Thyroid Medications: No Osteoporosis Medications: Yes Which medication: Evista Reclast How Long: About 4 years EXAM MEASUREMENTS: Bone mineral densitometry was performed using the [employer] System. Bone mineral density as measured about the Lumbar spine is: ----- L1-L4(G/cm2): 1.268 T Score Values are as follows: ----- L1: 0.9 ----- L2: 0.6 ----- L3: 0.3 ----- L4: 1.0 ----- L1-L4: 0.7 Z Score Values are as follows: ----- L1: 2.6 ----- L2: 2.3 ----- L3: 2.0 ----- L4: 2.7 ----- L1-L4: 2.4 Bone mineral density has: increased 4.0% since study of: 02/09/2023 Bone mineral density about the R hip (g/cm2): 0.928 Bone mineral density about the L hip (g/cm2): 0.890 T Score values are as follows: -----R Neck: -1.1 -----L Neck: -1.4 -----R Total: -0.6 -----L Total: -0.9 Z Score values are as follows: -----R Neck: 0.9 -----L Neck: 0.5 -----R Total: 1.1 -----L Total: 0.8 Bone mineral density has: increased 4.2% since study of: 02/09/2023 FRAX%s: The graph provided illustrates a 11.5% chance for a major osteoporotic fx and a 2.3% chance f or the hips probability for fx in 10 years time. IMPRESSION: Osteopenia (T Score between -2.5 and -1). There is slightly increased risk of fracture and the patient may be considered for treatment. Re-Screen 2-5 years. NOTE: T-SCORE=SD OF THE YOUNG ADULT MEAN. [facility], , 03/08/2025 8:46 AM
== END | disposition home or self-care (01) ==
LOC: RADBDWWP 14:31
PROVIDERS: ATTEND Internal Medicine Hematology & Oncology
DX: M81.0 Age-related osteoporosis without current pathological fracture (principal); M85.89 Other specified disorders of bone density and structure, multiple sites
CPT/HCPCS: 77080

== ENCOUNTER → 2025-03-07 | Outpatient (CLI) | payer MEDICARE ==
--- NOTE | 2025-03-07 14:59 | MM ---
Reason for Exam: Screening (asymptomatic). Last mammogram was performed 1 year(s) and 2 month(s) ago. Patient History: Menarche at age 13. Patient has no children. Postmenopausal. Breast cancer, right, age 70. Previous chest radiation therapy at age 69. Previous chemotherapy at age 69. Estrogen for 4 months starting at age 50. Progesterone for 4 months starting at age 50. Hormonal Contraceptives for 10 years from age 19 until age 29. 11/2020, Mastectomy on the Right side. Bilateral Excisional Biopsy. 04/14/2020, Malignant Core Biopsy on the right side. 04/14/2020, Malignant Core Biopsy on the right side. 04/14/2020, Malignant Core Biopsy on the right side. 04/14/2020, Malignant Core Biopsy on the right side. 05/21/2013, Benign Core Biopsy on the right side. Prior Study Comparison: 05/25/2021 Bilateral Screening Mammogram, [facility]. 05/26/2022 Left MG 3D diag mammo w/cad LT, [facility]. 01/04/2024 Left MG 3D scr phuc unilateral w/cad., [facility]. Tissue Density: Left: The breasts are heterogeneously dense, which may obscure small masses. Findings: Analyzed By CAD. There is no suspicious group of microcalcifications or new suspicious mass in either breast. Overall Assessment: Benign, BI-RAD 2 Management: Screening Mammogram of both breasts in 1 year. . Patient should continue monthly self-breast exams. A clinical breast exam by your physician is recommended on an annual basis. This exam should not preclude additional follow-up of suspicious palpable abnormalities. Note on Iveth scores and lifetime risk: 1. A Iveth score greater than 3% is considered moderate risk. If this is the case, consider specialist referral to assess eligibility for a risk reducing agent. 2. If overall lifetime risk for the development of breast cancer is 20% or higher, the patient may qualify for future screening with alternating mammogram and breast MRI. [facility], , 03/07/2025 2:55 PM. Electronically signed and approved by: Vidal Crawford M.D. Radiologis
== END | disposition home or self-care (01) ==
LOC: RADMAMWWP 14:33
PROVIDERS: ATTEND Internal Medicine
DX: Z12.31 Encounter for screening mammogram for malignant neoplasm of breast (principal); R92.332 Mammographic heterogeneous density, left breast; Z85.3 Personal history of malignant neoplasm of breast; Z78.0 Asymptomatic menopausal state; Z92.0 Personal history of contraception; Z90.11 Acquired absence of right breast and nipple
CPT/HCPCS: 77067

== ENCOUNTER 2025-03-19 09:17 | Day surgery (SDC) | payer MEDICARE ==
[2025-03-19] MEDS ORDERED: LACTATED RINGERS 1,000 ML IV SCH (09:57)
[2025-03-19 10:08] VITALS: TEMP 97
[2025-03-19] MEDS ORDERED: IOPAMIDOL M300 15ML VIAL ONE (10:36)
[2025-03-19] MEDS ORDERED: ROPIVACAINE 5 MG/ML 30 ML VIAL ONE (10:36)
[2025-03-19] MEDS ORDERED: methylPREDNISolone ACETATE 40 MG/ML 1 ML VIAL ONE (10:36)
[2025-03-19 10:58] VITALS: RESP 14
--- NOTE | 2025-03-19 10:58 | P.PCN ---
Description of Procedure: Preprocedure diagnosis. Sacroiliac joint arthropathy. Postprocedure diagnosis. As above. Procedure done. Injection of the radio contrast material into bilateral sacroiliac joint, sacroiliac joint arthrogram, interpretation of arthrogram. Bilateral sacroiliac joint injection with local anesthetics and steroid under fluoroscopic guidance. Anesthesia. Local anesthetic infiltration. Continuous EKG, pulse ox, blood pressure, and verbal communication was maintained with the patient in OR. Blood loss. Minimal. Indication. Sacroiliac joint arthropathy. Discussed the procedure, alternatives, complications which may include infection,bleeding, nerve damage, aggravation of pain which could be permanent. Patient understands and questions were answered. Procedure note. After getting consent patient in OR in prone position. Back prepped with chlorhexidine and draped in sterile manner. After injecting 10 mL of 1% lidocaine subcutaneously, a 22-gauge spinal needle was introduced under tunnel vision of the fluoroscope in the lower and posterior one third of right/left sacroiliac joint. After needle position confirmation by AP and crosstable lateral view, 1 mL of Isovue 200 contrast was injected. Contrast was noted to be into the sacroiliac joint. After repeat negative aspiration, 2.5 mL solution was injected which consists of 1.5 ml of 0.5% Ropivacaine mixed with 1 mL of 40 mg Depo-Medrol. In exactly same way left sacroiliac joint was injected with same amount of solution. After the procedure needles were taken out. Bandage applied. Disposition. Patient tolerated the procedure well. No complication. Patient was discharged home in stable condition.
--- NOTE | 2025-03-19 11:08 | FL ---
EXAMINATION TYPE: FL guided pain mgmt statistic DATE OF EXAM: 03/19/2025 HISTORY: Fluoroscopy time Total dose area product (DAP) in uGy*m?, mGy*cm? (or similar): 0.77906 IMPRESSION: 1. Fluoroscopy time. [facility], , 03/19/2025 11:06 AM
[2025-03-19 11:13] VITALS: BP 155/83; PULSE 70
== END 2025-03-19 11:26 | disposition home or self-care (01) ==
LOC: ORPAIN 09:17
PROVIDERS: ATTEND Pain Medicine Interventional Pain Medicine
DX: M46.1 Sacroiliitis, not elsewhere classified (principal)
CPT/HCPCS: 27096; J2795; Q9967; J1010; G0260